=== PATIENT | male | born 1985 | race Caucasian/White ===

== ENCOUNTER 2023-04-26 17:32 | Emergency (ER) | payer MEDICAID, SELFPAY ==
[2023-04-26] VITALS (9 sets, daily range): BP systolic 74–173; BP diastolic 55–108; PULSE 67–97; RESP 16–18; TEMP 36.6; O2SAT 93–100; BMI 33.3
--- NOTE | 2023-04-26 17:41 | RAD_ITS ---
STUDY: X-RAY - LEFT FOOT CLINICAL: Male, 37 years old. trauma TECHNIQUE: AP and lateral view(s) of the foot. COMPARISON: None. FINDINGS: Acute fractures of the distal tibia and fibula are noted and described within the report of the examination of the left tibia and fibula Normal talus,, and tarsal bones. Small plantar calcaneal spur is noted Normal visualized subtalar, talonavicular, calcaneocuboid, tarsal and tarsometatarsal articulations. Normal metatarsi. Normal metatarsophalangeal joint of the great toe. Normal tibial and fibular sesamoid bones. Normal interphalangeal joint of the great toe. Normal phalanges of the great toe. Normal second through fifth metatarsophalangeal joints. Normal interphalangeal joints and phalanges of the lesser toes. The soft tissue structures are unremarkable. RAD/Foot 2 Views IMPRESSION: No evidence for acute fracture or dislocation of the foot. Electronically Signed: Fred Lambert MD at 19:18 EDT ,
--- NOTE | 2023-04-26 17:43 | ED.VIS.LOWEX ---
HPI History of Present Illness HPI Narrative: 37-year-old diabetic male tripped going down carpeted steps in his home fell injuring his left knee, left lower leg and left ankle. This occurred about half hour ago. No LOC. Denies any head or neck injury. No back pain. Brought in by squad. Pretreated prior to arrival with fentanyl. Chief Complaint: Lower Extremity Injury Informant: patient and parent Occured/Mechanism Mechanism/Context: Yes injury and Yes blunt trauma Onset/Context/Timing Onset: Today Context: Sudden Onset Timing: Continuous Quality of Pain: Sharp and Stabbing Current Severity: Severe Maximum Severity: Severe Associated Symptoms Associated Symptoms: Negative for Parasthesia or Weakness Narrative Narrative: 37-year-old male fell down steps at home injuring his left lower leg. No LOC. Prior similar symptoms: No Recent Illness/Hospitalization: No PFSH PFSH Medical History Diabetes Herniated cervical disc HTN (hypertension) Kidney stones Home Medications atorvastatin 10 mg tablet 10 mg PO DAILY 04/26/23 [History Last Taken Unknown] celecoxib 100 mg capsule 100 mg PO Q24H 04/26/23 [History Last Taken Unknown] hydroxyzine HCl 25 mg tablet 25 mg PO Q8H PRN itching 04/26/23 [History Last Taken Unknown] losartan 50 mg-hydrochlorothiazide 12.5 mg tablet 1 tab PO DAILY 04/26/23 [History Last Taken Unknown] metformin 1,000 mg tablet 1,000 mg PO DAILY 04/26/23 [History Last Taken Unknown] oxycodone-acetaminophen 5 mg-325 mg tablet (Percocet) 1 tab PO Q4H PRN pain 7 days #30 tabs 04/26/23 [Rx Last Taken Unknown] paroxetine HCl 30 mg tablet 30 mg PO DAILY 04/26/23 [History Last Taken Unknown] Allergy/AdvReac Type Severity Reaction Status Date / Time No Known Allergies Allergy Verified 04/26/23 17:42 Surgical History H/O shoulder surgery Social History housing: house Smoking Status: Never smoker ROS ROS ED ROS Narrative Denies recent illness. Review of Systems ROS Unobtainable: Denies due to encephalopathy Constitutional Constitutional ED: Denies chills or fever(s) Eyes Eyes: Denies blurry vision ENT ENT ED: Denies ear pain Cardiovascular Cardiovascular: Denies chest pain Respiratory/Chest Respiratory/Chest: Denies cough or dyspnea Gastrointestinal Gastrointestinal: Denies abdominal pain Genitourinary Genitourinary ED: Denies dysuria Musculoskeletal Musculoskeletal: Denies arthralgias Integumentary Denies abscess Neurologic Neurologic: Denies headache(s) Psychiatric Psychiatric: Denies anxiety Endocrine Endocrinology: Denies polydipsia or polyphagia Allergic/Immunologic Allergic/Immunologic ED: Denies mouth swelling or tongue swelling EXAM Physical Exam Narrative Exam Narrative: 37-year-old male vital signs stable afebrile. Does not look septic or toxic. He is awake alert sitting upright in bed. Has a lower leg immobilizer in place. Air splint. HEENT exam pupils round reactive light. No facial or scalp trauma. C-spine and trachea nontender. Back and spine nontender. No signs of trauma. Lungs clear to auscultation bilaterally. Heart regular rhythm rate about 95 no murmur. Sternum chest wall and ribs nontender. Abdomen soft nontender. No signs of trauma. Pelvic ring intact. Upper extremities he has chronic right shoulder pain. Left shoulder, bilateral elbows wrist and hands are unremarkable. 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 Right lower extremity is nontender with normal range of motion. The left hip is nontender femur is nontender. Is tenderness at the left knee with an anterior abrasion. Tenderness of the tib-fib. Deformity of the left ankle. Palpable DP pulse. He is able wiggle his toes. Normal touch sensation and cap refill. Skin is intact of the abrasions of the knee. Neurologically he is awake and alert. GCS of 15. Answering questions following commands. Const Vital Signs: 04/26/23 17:34 04/26/23 17:52 04/26/23 17:59 Temperature 97.9 F Temperature Source Temporal Pulse Rate 97 90 Pulse Rate [1 (Initial Baseline)] Pulse Rate [2] Pulse Rate [3] Respiratory Rate 16 18 Respiratory Rate [1 (Initial Baseline)] Respiratory Rate [2] Respiratory Rate [3] Blood Pressure 173/80 H 74/55 L 150/93 H Blood Pressure [1 (Initial Baseline)] Blood Pressure [2] Blood Pressure [3] Blood Pressure Mean 111 61 112 Pulse Ox 93 98 Oxygen Delivery Method Room Air Room Air Oxygen Delivery Method [1 (Initial Baseline)] Oxygen Delivery Method [3] Oxygen Flow Rate (L/min) Oxygen Flow Rate (L/min) [1 (Initial Baseline)] Oxygen Flow Rate (L/min) [2] Oxygen Flow Rate (L/min) [3] 04/26/23 18:55 04/26/23 19:01 04/26/23 19:15 Temperature Temperature Source Pulse Rate 87 81 Pulse Rate [1 (Initial Baseline)] 97 Pulse Rate [2] 80 Pulse Rate [3] 67 Respiratory Rate 18 18 Respiratory Rate [1 (Initial Baseline)] 18 Respiratory Rate [2] 16 Respiratory Rate [3] 18 Blood Pressure 171/108 H 150/94 H Blood Pressure [1 (Initial Baseline)] 171/108 H Blood Pressure [2] 130/95 H Blood Pressure [3] 140/93 H Blood Pressure Mean Pulse Ox 100 93 Oxygen Delivery Method Nasal Cannula Room Air Oxygen Delivery Method [1 (Initial Baseline)] Nasal Cannula Oxygen Delivery Method [3] Nasal Cannula Oxygen Flow Rate (L/min) 4 Oxygen Flow Rate (L/min) [1 (Initial Baseline)] 4 Oxygen Flow Rate (L/min) [2] 4 Oxygen Flow Rate (L/min) [3] 4 04/26/23 19:20 04/26/23 19:25 Temperature Temperature Source Pulse Rate 85 75 Pulse Rate [1 (Initial Baseline)] Pulse Rate [2] Pulse Rate [3] Respiratory Rate 18 18 Respiratory Rate [1 (Initial Baseline)] Respiratory Rate [2] Respiratory Rate [3] Blood Pressure 145/97 H 135/61 H Blood Pressure [1 (Initial Baseline)] Blood Pressure [2] Blood Pressure [3] Blood Pressure Mean Pulse Ox 94 94 Oxygen Delivery Method Room Air Room Air Oxygen Delivery Method [1 (Initial Baseline)] Oxygen Delivery Method [3] Oxygen Flow Rate (L/min) Oxygen Flow Rate (L/min) [1 (Initial Baseline)] Oxygen Flow Rate (L/min) [2] Oxygen Flow Rate (L/min) [3] Positive well nourished and well developed; Negative for cachectic, contractures or unkempt General Appearance ED: well developed; Negative for unkempt, cachectic, contractures or NAD Nutritional Appearance: Negative for cachectic HEENT Reports moist mucous membranes normocephalic and atraumatic; Negative for trauma or tenderness Eyes PERRL General Eye ED: Negative for other Neck full ROM and supple Thyroid: Negative for tender Lymph Lymphatic: Negative for other Chest Wall inspection of chest normal and palpation of chest normal Chest: Negative for other Resp normal respiratory effort, no retractions and clear to auscultation bilaterally Effort and Inspection: Negative for pain with movement Auscultation: Negative for rales, rhonchi or wheezes Cardio regular rate, regular rhythm, S1 normal heart sound, S2 normal heart sound and no murmurs Rate: Negative for bradycardia or tachycardic Rhythm: Negative for abnormal rhythm Bruits: Negative for other GI non-tender, non-distended and no masses Inspection: Negative for abdominal distention Auscultation: normoactive bowel sounds Palpation: soft; Negative for tender or guarding Bladder / Kidney Exam: No other Back/Spine no CVA tenderness General Back: Negative for CVA tenderness Cervical Spine: Negative for cervical spine tenderness Thoracic Spine / Upper Back: Negative for thoracic spinal tenderness Lumbar Spine / Lower Back: Negative for lumbar spinal tenderness Extremity Negative for normal to inspection or full ROM Extremity Narrative: Right lower extremity and both upper extremities unremarkable other than chronic pain of his right shoulder not new or different. Left lower leg is an abrasion to the knee. Knee tenderness. Tenderness to the distal tib-fib and ankle without deformity. Left foot is neurovascularly intact. General Extremety ED: Yes edema; Negative for cyanosis General Extremity: edema; Negative for cyanosis Neuro oriented x3, CN's II-XII intact bilaterally and moves all extremities Sensorium / Orientation: alert, oriented to person, oriented to place and oriented to time; Negative for orientation impaired, confused, lethargic or stuporous Motor Exam: strength 5/5 throughout Psych mental status grossly normal Appearance: Negative for unkempt Speech: No other Mood & Affect: Negative for anxious Skin no wounds Skin Narrative: Abrasion left anterior knee. Lesions: no lesions Rashes: no rashes Trauma: abrasion; Negative for laceration or puncture MDM MDM MDM Narrative Medical decision making narrative: 37-year-old male diabetic fell down steps injuring his left lower leg. Concern for a left tib-fib fracture possible fracture dislocation. X-rays will be obtained of the and left knee down to the toes. Will be treated with Dilaudid for pain. He was already given Zofran and fentanyl by the squad. If he does have a fracture dislocation that needs reduced he may need conscious sedation. Patient doing well at 7:57 PM. He is awake alert. He is in a well-padded splint. Ankles been iced and elevated. He has received Dilaudid for pain. He is awake from the conscious sedation and doing well. I spoke to with orthopedics Dr. Mat Grove on-call. He requested a CAT scan of the ankle be obtained. Patient be discharged home with a walker to follow-up with their office. History & Record Review Discussion w/independent historian: Patient and Family Lab Data Labs: Laboratory Results - last 24 hr 04/26/23 17:51 POC Glucose 145 H Radiography Diagnostic Testing: Clinical Impression(s) from Imaging Studies Foot X-Ray 04/26/23 17:41 IMPRESSION: No evidence for acute fracture or dislocation of the foot. Electronically Signed: Fred Lambert MD at 19:18 EDT , Tibia/Fibula X-Ray 04/26/23 18:06 IMPRESSION: Acute fracture of the distal fibular shaft and fracture or subluxation of the distal tibia with widening of the anterior tibiotalar joint Electronically Signed: Fred Lambert MD at 19:04 EDT , Knee X-Ray 04/26/23 18:24 IMPRESSION: Normal x-ray examination of the knee. Electronically Signed: Fred Lambert MD at 19:45 EDT , Ankle X-Ray 04/26/23 18:29 IMPRESSION: Acute comminuted angulated fracture of the distal third of the fibular shaft and fracture subluxation of the distal tibial shaft Electronically Signed: Fred Lambert MD at 19:44 EDT , Procedures Lower Extremity Splints Lower Extremity Splint: Orthoglass and Stirrup Splint Fabrication: Fabricated Location: Left Procedural Sedation 1 (Initial Baseline): Consent Signed: Yes Any Problems With Anesthesia: No You/Your family experience fever (hyperthermia) w/anesthesia: No Sedation medication: Propofol Dose: 160 Total Moderate Sedation Units: 10 Maliampati Score: Class I ASA Classification: I Comment:: Left ankle fracture dislocation. Sedated with propofol. Initially on 100 mg and an additional 60 mg for a total of 160. When proper decidual sedation was obtained I manually reduced the ankle we placed a short leg posterior splint with sugar-tong side reinforcement. Patient tolerated procedure well. Currently he is awake and alert. He had about 10 minutes of procedural sedation. Discharge Plan Triage Chief Complaint: Lower Extremity Injury ED Provider: Antoni Piedra Dx/Rx/DC Orders Clinical Impression: Ankle dislocation, Ankle fracture Instructions: ED Ankle Fracture Prescriptions: New oxycodone-acetaminophen [Percocet] 5-325 mg tablet 1 tab PO Q4H PRN (Reason: pain) 7 Days Qty: 30 0RF No Action atorvastatin 10 mg tablet 10 mg PO DAILY Patient Comments: TAKE 1 TABLET BY MOUTH EVERY DAY paroxetine HCl 30 mg tablet 30 mg PO DAILY Patient Comments: TAKE 1 TABLET BY MOUTH ONCE DAILY metformin 1,000 mg tablet 1,000 mg PO DAILY Patient Comments: TAKE 1 TABLET BY MOUTH DAILY WITH BREAKFAST hydroxyzine HCl 25 mg tablet 25 mg PO Q8H PRN (Reason: itching) Patient Comments: TAKE 1 TABLET BY MOUTH THREE TIMES DAILY NEEDED FOR ANXIETY (FOR ITCHING). losartan-hydrochlorothiazide 50-12.5 mg tablet 1 tab PO DAILY Patient Comments: TAKE 1 TABLET BY MOUTH ONCE DAILY celecoxib 100 mg capsule 100 mg PO Q24H Patient Comments: TAKE 1 TABLET BY MOUTH TWICE DAILY FOR 30 DAYS Primary Care Provider: Sruthi Wilks NP Referrals: Garry Edward, [Med Staff - Active Staff] - As soon as possible Sruthi Wilks NP, PRACTICE ASSISTANT-C [Primary Care Provider] - Activity Restrictions/Additional Instructions: Absolutely no weightbearing on your left leg or splint. Ice and elevate is much as possible to decrease pain and swelling. Motrin for pain and swelling. Percocet for pain. Plenty of fluids and fiber to prevent constipation and/or stool softener due to the Percocet. Call and follow-up with [facility], Dr. Edward soon as possible. This most likely will need surgery. You had a broken left lower outer bone called the fibula about 3 inches above the ankle, a break to your posterior tibia and her ankle was dislocated. Keep the splint dry and clean. Disposition Disposition: Home, Self Care
[2023-04-26] MEDS: HYDROmorphone 1 MG/ML Syringe IV (17:46)
--- NOTE | 2023-04-26 18:06 | RAD_ITS ---
STUDY: X-RAY - LEFT TIBIA AND FIBULA REASON FOR EXAM: Male, 37 years old. trauma TECHNIQUE: 4 view(s) of the tibia and fibula were obtained. COMPARISON: None. FINDINGS: Acute impacted comminuted spiral fracture of the distal third of the fibula with mild overlapping and anterior angulation of fracture fragments. Acute comminuted intra-articular fracture of the posterior tibia and subluxation with widening of the anterior tibiotalar joint Diffuse soft tissue swelling RAD/Tibia & Fibula 2 Views IMPRESSION: Acute fracture of the distal fibular shaft and fracture or subluxation of the distal tibia with widening of the anterior tibiotalar joint Electronically Signed: Fred Lambert MD at 19:04 EDT ,
[2023-04-26 18:10] LABS: Bedside Glucose 145 mg/dL (74-106)
--- NOTE | 2023-04-26 18:24 | RAD_ITS ---
STUDY: X-RAY - LEFT KNEE REASON FOR EXAM: Male, 37 years old. FX TECHNIQUE: AP and lateral view(s) of the knee. COMPARISON: None. FINDINGS: Normal visualized distal femur. Normal visualized proximal tibia and fibula. Normal proximal tibiofibular articulation. Normal medial femorotibial compartment. Normal lateral femorotibial compartment. Normal patellofemoral articulation. The soft tissue structures are unremarkable. RAD/Knee 1 or 2 Views IMPRESSION: Normal x-ray examination of the knee. Electronically Signed: Fred Lamebrt MD at 19:45 EDT ,
[2023-04-26] MEDS: HYDROmorphone 1 MG/ML Syringe 0.5 MG IV (18:29)
--- NOTE | 2023-04-26 18:29 | RAD_ITS ---
STUDY: X-RAY - LEFT ANKLE REASON FOR EXAM: Male, 37 years old. FX TECHNIQUE: AP and lateral view(s) of the ankle. COMPARISON: None. FINDINGS: Acute comminuted spiral fracture of the distal third of the fibular shaft with mild separation and anterior angulation of fracture fragments. There is also comminuted intra-articular fracture of the distal posterior tibial shaft in association with anterior displacement of the distal tibial shaft and widening of the anterior talotibial joint RAD/Ankle 2 Views IMPRESSION: Acute comminuted angulated fracture of the distal third of the fibular shaft and fracture subluxation of the distal tibial shaft Electronically Signed: Fred Lambert MD at 19:44 EDT ,
--- NOTE | 2023-04-26 18:37 | ED.RN ---
Patient's mother in room making fun of patient. Stating, You are acting like a baby. These people are amazed that a 38 year old man is crying like a baby. The patient and his mother started arguing. Patient in 10/10 pain. Left lower extremity deformity due to fall. I asked the patient's mother to stop talking to the patient in that way. She stated that she would talk to him any way she liked, that it was her son. I asked the mother to leave. She continued to stay in the room. Security called to escort the mother out.
[2023-04-26] MEDS: Propofol 200 MG/20 ML Vial IV BOLUS (18:55)
[2023-04-26] MEDS: Propofol 200 MG/20 ML Vial 40 MG IV BOLUS (18:55)
--- NOTE | 2023-04-26 19:10 | RAD_ITS ---
STUDY: X-RAY - LEFT ANKLE REASON FOR EXAM: Male, 37 years old. post reduction TECHNIQUE: 3 view(s) of the ankle. COMPARISON: None. FINDINGS: Status post closed reduction of distal tibial fracture subluxation and fibular fracture with fracture fragments now in near anatomic alignment and position RAD/Ankle min 3 Views IMPRESSION: Status post closed reduction and fixation.. Electronically Signed: Fred Lambert MD at 19:59 EDT ,
--- NOTE | 2023-04-26 19:50 | CT_ITS ---
CT LEFT LOWER EXTREMITY WITH 3-D IMAGING CLINICAL INDICATION: left ankle fracture TECHNIQUE: Axial CT images of the LEFT lower extremity was performed IV contrast material. Coronal and sagittal reformats were provided. RADIATION DOSAGE (If Supplied By Facility): CTDIvol = ( 15.35 ) mGy, DLP = ( 422.84 ) mGycm COMPARISON: FINDINGS: Bones: There is an acute comminuted intra-articular fracture of the posterior malleolus with mild separation of fracture fragments. There is an acute comminuted spiral fracture of the distal third of the fibular shaft with mild separation and minor residual anterior angulation of fracture fragments. There is also an acute mildly comminuted intra-articular fracture of the distal tibial plafond without appreciable separation of fracture fragments No lytic or blastic osseous masses. Soft Tissues: The deep soft tissue structures are diffusely edematous. Diffuse subcutaneous swelling noted CT/Extremity Lower without Contra IMPRESSION: Acute trimalleolar fracture of the ankle with minor residual anterior angulation of the fibular fracture fragments of uncertain clinical significance Electronically Signed: Fred Lambert MD at 21:10 EDT ,
== END 2023-04-26 20:46 | disposition home or self-care (01) ==
PROVIDERS: Emergency Provider Emergency Medicine; PCP Nurse Practitioner Adult Health; Visit Provider Emergency Medicine
DX: S82.202A Unspecified fracture of shaft of left tibia, initial encounter for closed fracture (principal); E11.9 Type 2 diabetes mellitus without complications; S82.832A Other fracture of upper and lower end of left fibula, initial encounter for closed fracture; I10 Essential (primary) hypertension; Z79.84 Long term (current) use of oral hypoglycemic drugs; Z79.899 Other long term (current) drug therapy; W10.9XXA Fall (on) (from) unspecified stairs and steps, initial encounter
CPT/HCPCS: J2405; 73560; 73590; 73600; 73610; 73620; 73700; 82962; 96374; 96376; 99152; 99284; J7030; A4216